=== PATIENT | female | born 1975 | race Caucasian/White ===

== ENCOUNTER 2018-07-19 15:23 | Emergency (ER) | payer MEDICAID ==
[~2018-07-19] VITALS: Ht 154.9 cm; Wt 111.1 kg
[2018-07-19 15:25] VITALS: BP_SYST 155
--- NOTE | 2018-07-19 15:30 | NUR ---
BROUGHT BACK TO BED #8 AND TRIAGED. SEEN AND EVALUATED BY NADIRA PINEDA. REPORT GIVEN TO BETTE
[2018-07-19] MEDS ORDERED: IPRATROPIUM/ALBUTEROL SULFATE 3 ML AMPUL.NEB (DUONEB) INH ONE (15:45)
--- NOTE | 2018-07-19 15:45 | NUR ---
NADIRA PINEDA AT BEDSIDE FOR EVALUATION
--- NOTE | 2018-07-19 15:55 | NUR ---
RESPIRATORY TREATMENT BEING DONE AT THIS TIME. PT TOLERATED IT WELL.
--- NOTE | 2018-07-19 16:20 | NUR ---
XRAYS BEING DONE AT THIS TIME.
[2018-07-19 17:02] VITALS: BP_SYST 147
--- NOTE | 2018-07-19 17:05 | NUR ---
Patient given written and verbal discharge instructions and verbalizes understanding. ER MD discussed with patient the results and treatment provided. Patient in stable condition. ID arm band removed Rx of PROMETHAZINE HYDROCHLORIDE/DEXTROMETHORPHAN HYDROBROMIDE, TESSALON PERLES, ALBUTEROL, MEDROL DOSEPAK given. Patient educated on pain management and to follow up with PMD. Pain Scale 0/10. Opportunity for questions provided and answered. Medication side effect fact sheet provided.
== END 2018-07-19 17:05 | disposition home or self-care (01) ==
LOC: SED 15:23
DX: J06.9 Acute upper respiratory infection, unspecified (principal); I10 Essential (primary) hypertension
CPT/HCPCS: 71045; 93005; 94640; 99283; J7620

== ENCOUNTER 2019-04-08 11:36 | Emergency (ER) | payer MEDICAID ==
[~2019-04-08] VITALS: Ht 160 cm; Wt 108.9 kg
[2019-04-08 11:49] VITALS: BP_SYST 161
[2019-04-08 13:27] VITALS: BP_SYST 161
== END 2019-04-08 13:15 | disposition home or self-care (01) ==
LOC: SED 11:36
DX: H10.9 Unspecified conjunctivitis (principal); I10 Essential (primary) hypertension; E11.9 Type 2 diabetes mellitus without complications
CPT/HCPCS: 99282

== ENCOUNTER 2019-07-22 14:10 | Emergency (ER) | payer MEDICAID ==
[~2019-07-22] VITALS: Ht 154.9 cm; Wt 113.4 kg
[2019-07-22 14:16] VITALS: BP_SYST 163
--- NOTE | 2019-07-22 14:20 | NUR ---
Pt brought by partner, A&Ox4, pt presents to ER with skin rash on neck after waxing, afebrile, skin pink and warm, cap refill <3, VSS.
--- NOTE | 2019-07-22 14:22 | NUR ---
Dr Pryor doing MSE at triage room
[2019-07-22 14:43] VITALS: BP_SYST 142
--- NOTE | 2019-07-22 14:43 | NUR ---
Patient given written and verbal discharge instructions and verbalizes understanding. ER MD discussed with patient the results and treatment provided. Patient in stable condition. ID arm band removed. Rx of Doxycicline, Neosporin, Hydrocortisone given. Patient educated on pain management and to follow up with PMD. Pain Scale 2/10 tlerable for pt . Opportunity for questions provided and answered. Medication side effect fact sheet provided.
== END 2019-07-22 14:43 | disposition home or self-care (01) ==
LOC: SED 14:10
DX: L73.9 Follicular disorder, unspecified (principal); L25.0 Unspecified contact dermatitis due to cosmetics; I10 Essential (primary) hypertension
CPT/HCPCS: 99283